=== PATIENT | male | born 1975 | race Caucasian/White ===

== ENCOUNTER 2018-04-08 17:58 | Inpatient (IN) | payer OTHER ==
[~2018-04-08] VITALS: Ht 175.3 cm; Wt 81.6 kg
[2018-04-08 00:30] VITALS: BP 152/86
[2018-04-08 19:59] LABS: ABSOLUTE BASOPHIL COUNT 0 /CUMM (0.0-0.2); ABSOLUTE EOSINOPHIL COUNT 0.2 /CUMM (0.0-0.7); ABSOLUTE GRANULOCYTE CT 16.4 /CUMM (1.4-6.5); ABSOLUTE LYMPH COUNT 2.2 /CUMM (1.2-3.4); ABSOLUTE MONOCYTE COUNT 3.1 /CUMM (0.10-0.60); BASOPHIL % 0.1 % (0.0-2.0); EOSINOPHIL % 0.8 % (0-5); GRANULOCYTE % 74.9 % (42.2-75.2); HEMATOCRIT 40.3 % (42-52); MEAN CORPUSCULAR HGB 30.4 PG (27.0-31.0); MEAN CORPUSCULAR HGB CONC 33.3 G/DL (33.0-37.0); MEAN CORPUSCULAR VOLUME 91.4 FL (80.0-94.0); MEAN PLATELET VOLUME 7.5 FL (7.4-10.4); PLATELET COUNT 421 /CUMM (130-400); RBC DISTRIBUTION WIDTH 13.3 % (11.5-14.5); RED BLOOD CELL CT 4.41 /CUMM (4.70-6.10); WHITE BLOOD CELL COUNT 21.9 /CUMM (4.8-10.8)
--- NOTE | 2018-04-08 21:02 | RADIOLOGY REPORT ---
EXAMINATION: XR HAND, RIGHT CLINICAL INFORMATION: Pain and swelling with redness to dorsum of right hand. Presumptive diagnosis of fracture. COMPARISON: None TECHNIQUE: PA, lateral, and oblique views of the right hand. FINDINGS: There is prominent dorsal soft tissue swelling seen. No definite acute fracture or dislocation is seen. No radiopaque foreign body seen in the soft tissues. No significant degenerative change is seen. IMPRESSION: Prominent dorsal soft tissue swelling. No definite acute fracture.
--- NOTE | 2018-04-08 21:09 | ED HAND/WRIST INJURY COMPLAINT ---
History of Present Illness General Chief Complaint: Hand or Wrist Injury Source: patient Exam Limitations: no limitations Vital Signs & Intake/Output Vital Signs & Intake/Output Vital Signs Date Time Temp Pulse Resp B/P B/P Pulse O2 O2 Flow FiO2 Mean Ox Delivery Rate 04/08 2148 99.2 84 18 130/74 97 Room Air Room Air 04/08 1813 99.1 88 18 131/81 97 Room Air Room Air Allergies Coded Allergies: NO KNOWN ALLERGIES (02/13/13) Triage Note: PT TO ED WITH C/O INFECTION TO RIGHT BACK OF HAND SINCE YESTERDAY S/P IVDA. RIGHT HAND SWELLING REDNESS, SMALL SCAB NOTED. TEMP 99.1 Triage Nurses Notes Reviewed? yes Duration: day(s): (3-4), constant, continues in ED, getting worse Timing: single episode today Injury Environment: home Severity: moderate, severe Severity Numbers: 9 Pain/Injury Location: Right: Wrist. Context: IVDU Method of Injury: IVDU No Modifying Factors: none Associated Symptoms: swelling, redness HPI: 43-year-old male past medical history of IV drug use on methadone maintenance, GERD, presents for evaluation of pain swelling and redness in his right hand. Patient states that symptoms started after he attempted to inject heroin into the vein in his right hand. He missed the vein and instead injected into his soft tissue. Several days later he noted that the area is becoming red and swollen and more painful. The redness has gradually been spreading and now is going up his arm. He reports subjective fever at home. 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 He also reports some numbness and tingling in his fingertips. This been no discharge. No chest pain shortness of breath. He is not a diabetic. (Daniel Linares) General Stated Complaint: PT HAS A INFECTION IN THERT HAND,SWOLLEN (Aniya RASHID,Jeffrey Lenz) Past History Travel History Traveled to [place] past 21 day No Medical History Any Pertinent Medical History? 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 No (Daniel Linares) Review of Systems Review of Systems Constitutional: Reports: fever, malaise. EENTM: Reports: no symptoms. Respiratory: Reports: no symptoms. Cardiovascular: Reports: no symptoms. GI: Reports: no symptoms. Genitourinary: Reports: no symptoms. Musculoskeletal: Reports: no symptoms. Skin: Reports: see HPI, erythema. Neurological/Psychological: Reports: no symptoms. Hematologic/Endocrine: Reports: no symptoms. Immunologic/Allergic: Reports: no symptoms. All Other Systems: Reviewed and Negative (Daniel Linares) Physical Exam Physical Exam General Appearance: well developed/nourished, no apparent distress, alert, awake Head: atraumatic, normal appearance Eyes: Bilateral: normal appearance, PERRL, EOMI. Ears, Nose, Throat: hearing grossly normal Neck: normal inspection, supple, full range of motion Cardiovascular/Respiratory: normal breath sounds, normal peripheral pulses, regular rate/rhythm, no respiratory distress, NO MURMURS Back: normal inspection, normal range of motion Shoulder Left: normal range of motion, normal inspection Shoulder Right: normal range of motion, normal inspection Elbow Left: normal range of motion, normal inspection Elbow Right: normal range of motion, normal inspection Forearm Left: normal range of motion, normal inspection Forearm Right: normal range of motion, LYMPHATIC STREAKING Wrist Left: normal range of motion, normal inspection Wrist Right: normal range of motion, LYMPHATIC STREAKING Hand Left: normal inspection, normal range of motion Hand Right: infection, limited range of motion, swelling, tender, THERE IS ERYTHEMA SWELLING AND PAIN TO PALPATION OF THE DORSUM OF THE HAND. tHE ERYTHEMA STREAKS UP INTO THE WRIST AND FOREARM. tHE DORSUM OF THE HAND IS ALSO INDURATED. tHERE IS NO FOCAL FLUCTUANT AREAS NO DISCHARGE. rANGE OF MOTION IS SIGNIFICANTLY LIMITED DUE TO PAIN. cAP REFILL LESS THAN 2 SECONDS Neurologic/Tendon: normal sensation, no pulse deficit Skin: intact, normal color, warm/dry Lymphatic: no anterior cervical royal (Daniel Linares) Progress Differential Diagnosis: abscess, cellulitis, compartment syndrome, dislocation, fracture, gout, septic arthritis, sprain, tenosynovitis Plan of Care: Orders Procedure Date/time Status Regular Diet 04/09 B Active Misc Message 04/08 2242 Active ED Holding Orders 04/08 2242 Active Admit to inpatient 04/08 2242 Active Vital Signs 04/08 2242 Active Code Status 04/[address] UPPER EXT W IV CONTRAST 04/08 2224 Active BLOOD CULTURE 04/08 1915 Active LACTIC ACID 04/08 1915 Complete COMPREHENSIVE METABOLIC PANEL 04/08 1915 Complete CBC WITHOUT DIFFERENTIAL 04/08 1915 Complete Current Medications Sig/Daniel Start time Last Medication Dose Stop Time Status Admin Ketorolac 30 MG ONCE ONE 04/08 1915 CAN Tromethamine 04/08 1916 (Toradol) Laboratory Tests 04/08/182214: Lactic Acid Cancelled 04/08/181929: Anion Gap 13, Estimated GFR > 60, BUN/Creatinine Ratio 11.3, Glucose 94, Lactic Acid 0.7, Calcium 8.9, Total Bilirubin 0.8, AST 16 L, ALT 20 L, Alkaline Phosphatase 74, Total Protein 7.6, Albumin 3.9, Globulin 3.7, Albumin/Globulin Ratio 1.1, CBC w Diff MAN DIFF ORDERED, RBC 4.41 L, MCV 91.4, MCH 30.4, MCHC 33.3, RDW 13.3, MPV 7.5, Gran % 74.9, Lymphocytes % 9.9 L, Monocytes % 14.3 H, Eosinophils % 0.8, Basophils % 0.1, Absolute Granulocytes 16.4 H, Segmented Neutrophils 73, Band Neutrophils 3, Absolute Lymphocytes 2.2, Lymphocytes 13 L, Monocytes 11 H, Absolute Monocytes 3.1 H, Absolute Eosinophils 0.2, Absolute Basophils 0, Platelet Estimate INCREASED, Normocytic RBCs VERIFIED, Normochromic RBCs VERIFIED Microbiology 04/08 1945 BLOOD: Blood Culture - RECD 04/08 1930 BLOOD: Blood Culture - RECD Patient seen and evaluated. He has an area of cellulitis on the dorsum of the right hand extending into the forearm. There is no focal fluctuant areas that there is indurated. Patient has a low-grade temp here. We'll check basic labs x-ray. Patient medicated with Toradol. Blood cultures obtained. Patient has a white count 22,000. X-rays negative for fracture or subcutaneous status air. Patient is a high risk patient given that he is an injection drug user. Unasyn ordered. Patient will require admission to the hospital for IV antibiotics plastic surgery consult. A CT scan of the right hand was ordered. Case discussed with Dr. Kwan he agrees. Diagnostic Imaging: Viewed by Me: Radiology Read. Discussed w/RAD: Radiology Read. Comments: PATIENT: FLORIN GARVEY PRESENT AGE: 43 PATIENT ACCOUNT NO: [id number] : 76 LOCATION: [facility] ORDERING PHYSICIAN: Daniel ARGUELLO SERVICE DATE: 04/08/18 EXAM TYPE: RAD - XRY-HAND, RIGHT EXAMINATION: XR HAND, RIGHT CLINICAL INFORMATION: Pain and swelling with redness to dorsum of right hand. Presumptive diagnosis of fracture. COMPARISON: None TECHNIQUE: PA, lateral, and oblique views of the right hand. FINDINGS: There is prominent dorsal soft tissue swelling seen. No definite acute fracture or dislocation is seen. No radiopaque foreign body seen in the soft tissues. No significant degenerative change is seen. IMPRESSION: Prominent dorsal soft tissue swelling. No definite acute fracture. DICTATED BY: Tonia Lundy MD DATE/TIME DICTATED:04/08/182044 ARMAMENT REPAIRER:GREER DATE/TIME TRANSCRIBED:04/08/182044 CONFIDENTIAL, DO NOT COPY WITHOUT APPROPRIATE AUTHORIZATION. <Electronically signed in Other Vendor System> SIGNED BY: Tonia Lundy MD [id number] (Daniel Linares) Departure Departure Disposition: HOME OR SELF CARE Condition: Stable Clinical Impression Primary Impression: Cellulitis and abscess of hand Referrals: Patient Has No Primary Care Dr (PCP/Family) Departure Forms: Customer Survey General Discharge Information Admission Note Spoke With: Marino Watson MD Documentation of Exam: Documentation of any treatments & extenuating circumstances including Concerns Regarding Discharge (functional status, medication knowledge or non-compliance, living conditions, etc.) that warrant an admission rather than observation: Patient is a high risk patient given he is an injection drug user. [IV fluids, IV antibiotics, serial labs, plastic surgery consult, follow-up cultures, infectious disease consult, IV pain control] (Daniel Linares) PA/WEIGHER AND CRUSHER Co-Sign Statement Statement: ED Attending supervision documentation- [X] I saw and evaluated the patient. I have also reviewed all the pertinent lab results and diagnostic results. I agree with the findings and the plan of care as documented in the PA's/WEIGHER AND CRUSHER's documentation. Patient presents for evaluation of a hand infection after attempting IV drug use. Physical examination reveals erythema and swelling with lymphadenitis of the dorsum of the right hand. [] I have reviewed the ED Record and agree with the PA's/WEIGHER AND CRUSHER's documentation. [] Additions or exceptions (if any) to the PAs/WEIGHER AND CRUSHER's note and plan are summarized below: [] (Aniya RASHID,Jeffrey Lenz)
--- NOTE | 2018-04-08 23:36 | CT SCAN REPORT ---
EXAMINATION: CT UPPER EXTREMITY WITH CONTRAST, RIGHT CLINICAL INFORMATION: Pain swelling lymphatic streaking to dorsum of right hand after IV DU COMPARISON: X-ray of the right hand earlier same day TECHNIQUE: CT scan of the right distal forearm wrist and hand was performed with contrast with 95 mL of Optiray 320 given intravenously. Additional sagittal coronal reformatted imaging obtained at the acquisition workstation DLP: 361 mGy-cm FINDINGS: There is subcutaneous fluid density noted throughout the dorsum of the wrist and hand. There may be some minimal enhancement of the subcutaneous soft tissue in this area. There is also increased fluid within the extensor tendon sheath beginning at the wrist and extending into the hand involving the second through fifth fingers. No definite Adelina synovitis of the thumb. IMPRESSION: Tenosynovitis of the extensor tendons extending to the second through fifth fingers. Edema in the dorsal subcutaneous soft tissues of the wrist and hand with perhaps some minimal enhancement consistent with cellulitis. No focal fluid collection or abscess.
--- NOTE | 2018-04-08 23:37 | History & Physical ---
Keyona Hu MD,[facility] 04/08/18 9647: General Information and HPI MD Statement: I have seen and personally examined FLORIN GARVEY and documented this H&P. The patient is a 43 year old M who presented with a patient stated chief complaint of [swelling and erythema of right hand]. Source of Information: patient History of Present Illness: Patient is 43-year-old male with PMH of IVDU, on methadone since 2012 (follows [facility] in [place]), HEP C, MRSA, GERD, anxiety, depression presented to the ED with chief complaint of swelling and redness right hand. Patient restarted to use IV heroin since 3 weeks ago after stopping for the last 3 years. He was injecting on the dorsum of the hands, and for the last couple of days on the right hand. He noticed erythema on the right hand for the last 3 days, with extreme worsening this morning when he woke up. He also had severe swelling and erythema. He reported decreased motion due to severe pain. Patient also reported URTI symptoms last week with initially fever and chills, cough and sputom, but denied any fever or chills now. No chest pain, sob, weakness, fatique. He denied drinking alcohol for the last 3 years, smokes 0.5PPD since age 14. Family history significant for heart attack in brother and breast cancer in sister. Allergies/Medications Allergies: Coded Allergies: NO KNOWN ALLERGIES (02/13/13) Home Med list Esomeprazole (Nexium) 40 MG CAPSULE.DR 1 CAP PO DAILY GERD (Reported) Methadone Hydrochloride (Methadone HCl) 10 MG TABLET 25 MG PO DAILY OPIATE WITHDRAWAL (Reported) Trazodone HCl 50 MG TABLET 1 TAB PO QPM SLEEP (Reported) Past History Travel History Traveled to [place] past 21 day No Medical History Neurological: NONE EENT: NONE Cardiovascular: NONE Respiratory: NONE Gastrointestinal: GERD Hepatic: NONE Renal: NONE Musculoskeletal: NONE Psychiatric: anxiety, depression Endocrine: NONE Blood Disorders: NONE Cancer(s): 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 Exam & Diagnostic Data Last 24 Hrs of Vital Signs/I&O Vital Signs Date Time Temp Pulse Resp B/P B/P Pulse O2 O2 Flow FiO2 Mean Ox Delivery Rate 04/09 0030 98.4 71 18 152/86 99 Room Air 04/08 2148 99.2 84 18 130/74 97 Room Air Room Air 04/08 1813 99.1 88 18 131/81 97 Room Air Room Air Intake & Output 04/09 0800 04/09 0000 04/08 1600 Intake Total 240 Output Total Balance 240 Intake, Oral 240 Patient 180 lb Weight Weight Reported by Patient Measurement Method Physical Exam General Appearance Alert, Oriented X3, Cooperative, No Acute Distress Skin Erythema, swelling and tenderness of right hand, pain with motion, 1cm papuar/pustular lesion on dorsum of hand. cap fill normal Skin Temp/Moisture Exam: Warm/Dry HEENT Atraumatic, EOMI Cardiovascular Normal S1, Normal S2 Lungs Clear to Auscultation, Normal Air Movement Abdomen Soft, No Tenderness Extremities scar of knee surgery Last 24 Hrs of Labs/Aaron: Laboratory Tests 04/08/182214: Lactic Acid Cancelled 04/08/181929: Anion Gap 13, Estimated GFR > 60, BUN/Creatinine Ratio 11.3, Glucose 94, Lactic Acid 0.7, Calcium 8.9, Total Bilirubin 0.8, AST 16 L, ALT 20 L, Alkaline Phosphatase 74, Total Protein 7.6, Albumin 3.9, Globulin 3.7, Albumin/Globulin Ratio 1.1, CBC w Diff MAN DIFF ORDERED, RBC 4.41 L, MCV 91.4, MCH 30.4, MCHC 33.3, RDW 13.3, MPV 7.5, Gran % 74.9, Lymphocytes % 9.9 L, Monocytes % 14.3 H, Eosinophils % 0.8, Basophils % 0.1, Absolute Granulocytes 16.4 H, Segmented Neutrophils 73, Band Neutrophils 3, Absolute Lymphocytes 2.2, Lymphocytes 13 L, Monocytes 11 H, Absolute Monocytes 3.1 H, Absolute Eosinophils 0.2, Absolute Basophils 0, Platelet Estimate INCREASED, Normocytic RBCs VERIFIED, Normochromic RBCs VERIFIED Microbiology 04/08 1945 BLOOD: Blood Culture - RECD 04/08 1930 BLOOD: Blood Culture - RECD Assessment/Plan Assessment: Patient is 43-year-old male presented to the ED with chief complaint of swelling and redness right hand after drug injection PMH: IVDU, on methadone since 2012 (follows [facility] in [place]), HEP C, MRSA, GERD, anxiety, depression VS, Ph Ex at admission: No fever, insignificant, FL 88 Labs at admission: WBC 21, bands 3, BEP insignificant Imagings at admission: Hand x-ray Prominent dorsal soft tissue swelling. No definite acute fracture. hand CT: Tenosynovitis of the extensor tendons extending to the second through fifth fingers. Edema in the dorsal subcutaneous soft tissues of the wrist and hand with perhaps some minimal enhancement consistent with cellulitis. No focal fluid collection or abscess. Patient was admitted to floor for management of following conditions: Cellulitis IVDA on methadone chronic medical conditions - Admit patient to general medicine floor - Check vital signs - Check progression of erythema - IV fluids - Plastic surgery called, no emergent intervention needed - evalaute for Compartment syndrom, 5P - administer IV Unasyn, vancomycin - pain control with IV tynelol, continue methadone - UTox DVT ppx: alps and pharmacologic Regular diet FC As Ranked By This Provider Problem List: 1. Cellulitis and abscess of hand Core Measures/Misc (08/18) Acute Coronary Syndrome ACS Diagnosis: No Congestive Heart Failure Congestive Heart Failure Diagnosis No Cerebrovascular Accident CVA/TIA Diagnosis: No VTE (View Protocol) VTE Risk Factors Age>40 No Mechanical VTE Prophylaxis d/t N/A MechProphylax Ordered No VTE Pharm Prophylaxis d/t NA PharmProphylax ordered Sepsis (View protocol) Sepsis Present: No Samra Campos 04/09/18 0114: Resident Review Statement Resident Statement: examined this patient, discussed with mechanical engineering intern Other Findings: Patient is a 43-year-old male with past medical history of IVDA, history of MRSA , hep C, depression/anxiety, GERD, cocaine abuse, methadone user presented to the ED with a chief complaint of pain and swelling in his right hand for the past 2-3 days. Patient states that he noticed redness and swelling in his right hand about 3 days ago. He injects heroine to both his right and left hands alternatively. He has been using his right hand for injections in spite of the redness and the swelling. A few days ago while attempting to inject insulin he injected heroin into the soft tissue. The pain and swelling started since then. Today he found his hand extremely swollen and more painful and was unable to move it. The erythema had moved from his hand up his arm. He reports no drainage from his hand. Denies any fevers, chills, chest pain, palpitation, nausea, vomiting, abdominal bowel symptoms. No vesicular pustular lesions, history of arthritis. Patient is sexually active. He had URTI about a week ago when he had some fevers and chills. Patient is a cocaine user but denies using it in the past couple of years. He is a smoker with 1/2 PPD for the last 30 years. Denies any alcohol use in the last 2 years. No previous similar cellulitis. Vitals at admission: Temp 99.1, ulcerative, respiration 18, blood pressure 131/ 81, saturating 97% on room air. Labs significant for white count of 21.9 with 3 bands, H&H 13.4/40.3, normal chemistries. X-ray hand showed soft tissue swelling with no fracture. CT hand showed no synovitis of the extensor tendon extending to the second through fifth fingers. Edema in the dorsal subcutaneous tissues of the wrist, no collection or abscesses seen. Physical exam General: Awake, alert, oriented, in moderate distress HEENT: PERRLA, EOMI, no lymphadenopathy Chest: Clear breath sounds bilaterally CVS: Tachycardia, no murmurs heard Abdomen: No tenderness Extremities: Right hand : Erythema, swelling, warmth over the dorsum of right hand. Erythema extending from the wrist to the forearm. Movement of the hand extremely painful. Pulses positive, no paresthesia. Fluctuation negative. Small area of pustule/scabbing due to puncture wound over the dorsum noted. Palmar side of the hand appears clean. No pus seen Left hand: Some erythema and redness over the left dorsum with puncture wounds on the dorsum with scabbing. Assessment Right hand cellulitis Infectious Tenosynovitis of extensor tendon second to fifth finger finger IV drug abuser On methadone Cocaine user History of hep C Smoker Plan Admit to [facility] Vitals per protocol Gentle hydration IV normal saline at 75 ccx 1 baG Tetanus toxoid injection Patient received IV Unasyn in the ED. Need to cover for gram-positive, gram- negative and anaerobes We will continue IV vancomycin and IV Unasyn. Patient also has history of MRSA Pain control with oxycodone and Tylenol Blood cultures Check U tox No abscess seen on CT scan. No signs of compartment syndrome at this time. Discussed with Arben Ribera MD. We'll continue antibiotics and plastics will evaluate the patient in a.m. Patient says he takes 25 mg of methadone from [facility] in [place]. Please confirm those in a.m. and restarted. Patient also takes trazodone 50 mg. No claim history. Please confirm with pharmacy in a.m. DVT subcutaneous Lovenox Full code Marino Watson 04/09/18 0421: Attending MD Review Statement Attending Statement Attending MD Statement: examined this patient, discuss w/resident/PA/CLEANER ASSISTANT, agreed w/resident/PA/CLEANER ASSISTANT, reviewed EMR data (avail), reviewed images, amended to note Attending Assessment/Plan: cc: Right hand infection PMH: IVDU, GERD, anxiety, depression, history of hep C S/P treatment, history of MRSA Patient started to notice swelling of right hand on the dorsal aspect since last 3 days, swelling progressively worsened. Patient has been using daily IV heroine through veins in that area. On other occasions it may have extravasated. Even with the swelling he continued the use of IVDU in same area and today he started to notice worsening redness, pain, swelling so he came to ER. He denies any fever, chills, chest pain, palpitation. He had URI symptoms with severe sore throat approximately one week back and currently having residual cough. Otherwise complete ROS unremarkable. He had MRSA infection and foot in remote past for which he was admitted at [facility]. Vitals: Temperature 99.2, pulse 88, RR 18, blood pressure 131/81, saturating 97% on room air On exam: A O 3, cooperative, no acute distress, neck supple, JVD normal, no lymphadenopathy, mucosa moist, no focal neurological deficit, no dependent edema , no obvious skin rashes or inflammation CVS: S1-S2, RRR, no murmur auscultated. RS: Clear to auscultate bilaterally. Abdomen: Soft, NT, ND, bowel sounds present. Right hand is swollen on dorsal aspect, flexion and extension at MCP is limited secondary to pain, passive motion as possible but again limited secondary to pain. Capillary refill normal, radial pulse normal, no fluctuation, no discharge. CT right hand with IV contrast: Tenosynovitis of the extensor tendons extending to the second through fifth fingers. Edema in the dorsal subcutaneous soft tissues of the wrist and hand with perhaps some minimal enhancement consistent with cellulitis. No focal fluid collection or abscess. Assessment and plan 43-year-old male with history of IV drug use presented in ER for right hand swelling, redness, pain started approximately 3 days back and became worse today. Even with the swelling he was shooting drugs in the same vein. On examination Right hand is swollen on dorsal aspect, flexion and extension at MCP is limited secondary to pain, passive motion as possible but again limited secondary to pain. Capillary refill normal, radial pulse normal, no fluctuation, no discharge. Labs show significant leukocytosis, lactate of 0.[address] scan of the hand was obtained which is worrisome for tenosynovitis, I personally spoke to Dr. Sanders and provided all the details. He suggested to continue antibiotics and he will see patient tomorrow. Given his history of MRSA he will continue vancomycin along with Unasyn. No known drug allergies + Right hand infection with tenosynovitis + History of IV drug use + Opiate dependence - Admit to general medicine - Continue gentle hydration normal saline at 75 mL for 1 L - Continue IV Unasyn and vancomycin - Plastic surgery consult - Blood culture 2 - Obtain U tox - Obtain a set of troponin and ECG (use of cocaine) - Continue all home medications, confirm the dose of methadone before restarting - Adequate pain control
[2018-04-09] MEDS ORDERED: NEXIUM40 M1 PO (00:08)
[2018-04-09] MEDS ORDERED: METHADONE HCL10 M1 PO (00:08)
[2018-04-09] MEDS ORDERED: TRAZODONE HCL50 M1 PO (00:09)
--- NOTE | 2018-04-09 04:23 | Admission Certification ---
Admission Certification Certification Statement - As attending physician, I certify that at the time of - admission, based on clinical presentation, severity of - symptoms, need for further diagnostic testing and - therapeutic interventions, and risk of adverse outcomes - without in-hospital treatment, in my clinical assessment, - this patient requires an acute hospital stay for a minimum - of two nights or longer. I have also considered psychsocial - factors such as support system, advanced age, financial - issues, cognitive issues, and failed out-patient treatments, - past re-admission history, safety of patient, and lack of - compliance as applicable. Specific rationale supporting this admission is: Right hand infection with tenosynovitis
--- NOTE | 2018-04-09 05:04 | PN- Housestaff ---
Carolyn RASHID,Diane 04/09/18 0503: Subjective Follow-up For: Tenosynovitis/celluliti right hand Complaints: complaints of pain and right hand Subjective: Patient seen and examined at bedside. No overnight events. Complaints of 7 x 10 pain in his right hand. He is unable to make a fist. Denies fever, chills, nausea, vomiting, chest pain. Review of Systems Constitutional: Reports: no symptoms. Cardiovascular: Reports: no symptoms. Respiratory: Reports: no symptoms. Gastrointestinal: Reports: no symptoms. Genitourinary: Reports: no symptoms. Objective Last 24 Hrs of Vital Signs/I&O Vital Signs Date Time Temp Pulse Resp B/P B/P Pulse O2 O2 Flow FiO2 Mean Ox Delivery Rate 04/09 0531 99.2 80 18 129/73 97 Room Air 04/09 0030 98.4 71 18 152/86 99 Room Air 04/08 2148 99.2 84 18 130/74 97 Room Air Room Air 04/08 1813 99.1 88 18 131/81 97 Room Air Room Air Intake & Output 04/09 1600 04/09 0800 04/09 0000 Intake Total 50 250 240 Output Total Balance 50 250 240 Intake, IV 250 Intake, Oral 50 240 Patient 180 lb 180 lb Weight Weight Reported by Patient Reported by Patient Measurement Method Physical Exam General Appearance: Alert, Oriented X3, Cooperative, No Acute Distress Cardiovascular: Normal S1, Normal S2, No Murmurs Lungs: Clear to Auscultation Abdomen: Soft, No Tenderness, No Hepatospenomegaly Neurological: Normal Speech, Strength at 5/5 X4 Ext, Normal Tone, Sensation Intact Extremities: rt hand- swelling,redness. unable to amke fist.lrft had 3*4 cm redness with no tenderness reva . both hand has iv track mcconnell Current Medications: Current Medications Sig/Daniel Start time Last Medication Dose Route Stop Time Status Admin Acetaminophen 0 .STK-MED ONE 04/09 543 DC IV Acetaminophen 1,000 MG Q6P PRN 04/09 0130 AC 04/09 N/A 1 UNIT IV 0552 Acetaminophen 325 MG Q6 PRN 04/08 2345 AC PO Ampicillin Sodium/ 1,500 MG Q6 04/09 0600 AC 04/09 Sulbactam Sodium IV 0606 Sodium Chloride 100 ML Ampicillin Sodium/ 0 .STK-MED ONE 05/09 0543 DC Sulbactam Sodium .ROUTE Ampicillin Sodium/ 0 .STK-MED ONE 04/08 2145 DC Sulbactam Sodium .ROUTE Ampicillin Sodium/ 3,000 MG ONCE ONE 04/08 2100 DC 04/08 Sulbactam Sodium IV 04/08 Sodium Chloride 100 ML Enoxaparin Sodium 40 MG DAILY 04/09 900 CAN SC Enoxaparin Sodium 40 MG DAILY 04/09 900 AC SC Ketorolac 30 MG ONCE ONE 04/08 1945 DC 04/08 Tromethamine IM 04/08 Ketorolac 0 .STK-MED ONE 04/08 1926 DC Tromethamine .ROUTE Ketorolac 30 MG ONCE ONE 04/08 1915 CAN Tromethamine IV 04/08 1916 Naproxen 500 MG BID 04/09 0939 AC PO Omeprazole 40 MG DAILY AC 04/09 0700 AC 04/09 PO 0603 Omeprazole 0 .STK-MED ONE 04/09 0608 DC PO Oxycodone HCl 10 MG Q6P PRN 04/09 0938 AC PO Oxycodone HCl 5 MG Q6 PRN 04/09 0130 DC 04/09 PO 0812 Sodium Chloride 1,000 ML Q13H 04/09 0130 AC 04/09 IV 04/09 1429 0210 Tetanus/Diphtheria 0.5 ML ONCE ONE 04/09 0100 DC Toxoids Adsorbed IM 04/09 0101 Vancomycin HCl 1,000 MG DAILY 04/09 900 DC Sodium Chloride 250 ML IV Vancomycin HCl 1,000 MG DAILY 04/09 0130 AC 04/09 Sodium Chloride 250 ML IV 0210 Last 24 Hrs of Lab/Aaron Results Last 24 Hrs of Labs/Mics: Laboratory Tests 04/09/18 0635: Urine Opiates Screen > 4000.00 H, Methadone Screen > 735 H, Barbiturate Screen < 60, Ur Phencyclidine Scrn < 6.00, Amphetamines Screen < 100, U Benzodiazepines Scrn < 85, Urine Cocaine Screen 253, Urine Cannabis Screen < 5.00, Urine Color YEL, Urine Clarity CLEAR, Urine pH 7.5, Ur Specific [place] 1.010, Urine Protein TRACE H, Urine Ketones NEG, Urine Nitrite NEG, Urine Bilirubin NEG, Urine Urobilinogen 1.0, Ur Leukocyte Esterase NEG, Ur Microscopic SEDIMENT EXAMINED, Urine RBC 3-5, Urine WBC 1-3 H, Urine Bacteria RARE H, Urine Hemoglobin TRACE- INTACT H, Urine Glucose NEG 04/09/18 0605: Anion Gap 9, Estimated GFR > 60, BUN/Creatinine Ratio 13.3, Troponin I < 0.01 04/09/18 0600: CBC w Diff MAN DIFF ORDERED, RBC 4.11 L, MCV 91.1, MCH 30.4, MCHC 33.3, RDW 13.6, MPV 7.4, Gran % 78.2 H, Lymphocytes % 9.5 L, Monocytes % 11.6 H, Eosinophils % 0.5, Basophils % 0.2, Absolute Granulocytes 19.5 H, Segmented Neutrophils 67, Band Neutrophils 3, Absolute Lymphocytes 2.4, Lymphocytes 13 L, Monocytes 15 H, Absolute Monocytes 2.9 H, Absolute Eosinophils 0.1, Absolute Basophils 0, Metamyelocytes 2 H, Platelet Estimate ADEQUATE, Polychromasia 1+, Ovalocytes FEW, Fld Total RBCs Counted 100 04/08/182214: Lactic Acid Cancelled 04/08/181929: Anion Gap 13, Estimated GFR > 60, BUN/Creatinine Ratio 11.3, Glucose 94, Lactic Acid 0.7, Calcium 8.9, Total Bilirubin 0.8, AST 16 L, ALT 20 L, Alkaline Phosphatase 74, Total Protein 7.6, Albumin 3.9, Globulin 3.7, Albumin/Globulin Ratio 1.1, CBC w Diff MAN DIFF ORDERED, RBC 4.41 L, MCV 91.4, MCH 30.4, MCHC 33.3, RDW 13.3, MPV 7.5, Gran % 74.9, Lymphocytes % 9.9 L, Monocytes % 14.3 H, Eosinophils % 0.8, Basophils % 0.1, Absolute Granulocytes 16.4 H, Segmented Neutrophils 73, Band Neutrophils 3, Absolute Lymphocytes 2.2, Lymphocytes 13 L, Monocytes 11 H, Absolute Monocytes 3.1 H, Absolute Eosinophils 0.2, Absolute Basophils 0, Platelet Estimate INCREASED, Normocytic RBCs VERIFIED, Normochromic RBCs VERIFIED Microbiology 04/08 1945 BLOOD: Blood Culture - RECD 04/08 1930 BLOOD: Blood Culture - RECD Assessment/Plan Assessment: 43-year-old gentleman with past medical history of hepatitis C, IV drug abuse on methadone [IV heroine use], MRSA infection in the past, GERD, anxiety, depression came to the hospital with complaints of pain and swelling right hand. Labs today WBC 21.9--- 25 with 78.2 granulocytes and 3 band neutrophils, hemoglobin 12.5, sodium 135, potassium 3.8. Assessment and plan 1. Cellulitis right hand and TENOsynovitis of right second to fifth finger - cellulitis of his right hand and the synovitis secondary due to IV drug abuse. Patient is on vancomycin covering MRSA, Unasyn covering gram-positive, negative and anaerobes. At this moment there is no suspicion for pseudomonas infection. We will continue current antibiotics. If the patient condition doesn't improve we will involve ID on board. 2. Anxiety/depression-patient has baseline anxiety and depression. He complains of increased sweating and anxiety secondary to heroine withdrawal. Patient is to take 10-12 packs of heroine daily. He goes to methadone clinic at [place], though he doesn't take his methadone regularly. Last methadone 25 mg was taken to days ago. We will confirm with the methadone clinic regarding his complaints. Meanwhile we will get psychiatry on board to help the patient tried withdrawal. Code-full code Diet-regular diet DVT prophylaxis Problem List: 1. Tenosynovitis 2. Cellulitis Pain Ratin Pain Location: RT HAND Pain Goal: Remain pain free Pain Plan: ROXICODENE Tomorrow's Labs & Rationales: CLAUDIA Rodríguez MD,Claudia 04/09/18 1123: Attending MD Review Statement Attending Statement Attending MD Statement: examined this patient, discuss w/resident/PA/RETAIL CLERK, agreed w/resident/PA/RETAIL CLERK, reviewed EMR data (avail), discussed with nursing, discussed with case mgmt, reviewed images, amended to note Attending Assessment/Plan: Patient seen and examined, not feeling better. Still complaining of excruciating pain in his right hand. Patient is admitted with right hand cellulitis after IV drug abuse. He is also on chronic methadone. Vital Signs Date Time Temp Pulse Resp B/P B/P Pulse O2 O2 Flow FiO2 Mean Ox Delivery Rate 04/09 0531 99.2 80 18 129/73 97 Room Air 04/09 0030 98.4 71 18 152/86 99 Room Air 04/08 2148 99.2 84 18 130/74 97 Room Air Room Air 04/08 1813 99.1 88 18 131/81 97 Room Air Room Air on exam; aox3, nad. cv; s1,s2 rrr resp; clear abd; soft, nt, bs+ ext; no edema skin; + erythema swelling on right hand. limited rom. Laboratory Tests 04/09 04/09 0635 0605 Chemistry Sodium (137 - 145 mmol/L) 135 L Potassium (3.5 - 5.1 mmol/L) 3.8 Chloride (98 - 107 mmol/L) 98 Carbon Dioxide (22 - 30 mmol/L) 28 Anion Gap (5 - 16) 9 BUN (9 - 20 mg/dL) 8 L Creatinine (0.7 - 1.2 mg/dL) 0.6 L Estimated GFR (>60 ml/min) > 60 BUN/Creatinine Ratio (7 - 25 %) 13.3 Troponin I (<0.11 ng/ml) < 0.01 Toxicology Urine Opiates Screen (>2000 NG/ML) > 4000.00 H Methadone Screen (>300 NG/ML) > 735 H Barbiturate Screen (>200 NG/ML) < 60 Ur Phencyclidine Scrn (>25 NG/ML) < 6.00 Amphetamines Screen (>1000 NG/ML) < 100 U Benzodiazepines Scrn (>200 NG/ML) < 85 Urine Cocaine Screen (>300 NG/ML) 253 Urine Cannabis Screen (>50 NG/ML) < 5.00 Urines Urine Color (YEL,AMB,STR) YEL Urine Clarity (CLEAR) CLEAR Urine pH (5.0 - 8.0) 7.5 Ur Specific [place] (1.001 - 1.035) 1.010 Urine Protein (NEG,<30 MG/DL) TRACE H Urine Ketones (NEG) NEG Urine Nitrite (NEG) NEG Urine Bilirubin (NEG) NEG Urine Urobilinogen (0.1 - 1.0 EU/dl) 1.0 Ur Leukocyte Esterase (NEG) NEG Ur Microscopic SEDIMENT EXAMINED Urine RBC (0 - 5 /HPF) 3-5 Urine WBC (0 - 2 /HPF) 1-3 H Urine Bacteria (NEG/NONE) RARE H Urine Hemoglobin (NEG) TRACE-INTACT H Urine Glucose (N MG/DL) NEG 04/09 04/08 0600 2215 Chemistry Lactic Acid Cancelled Hematology CBC w Diff MAN DIFF ORDERED WBC (4.8 - 10.8 /CUMM) 25.0 H RBC (4.70 - 6.10 /CUMM) 4.11 L Hgb (14.0 - 18.0 G/DL) 12.5 L Hct (42 - 52 %) 37.4 L MCV (80.0 - 94.0 FL) 91.1 MCH (27.0 - 31.0 PG) 30.4 MCHC (33.0 - 37.0 G/DL) 33.3 RDW (11.5 - 14.5 %) 13.6 Plt Count (130 - 400 /CUMM) 397 MPV (7.4 - 10.4 FL) 7.4 Gran % (42.2 - 75.2 %) 78.2 H Lymphocytes % (20.5 - 51.1 %) 9.5 L Monocytes % (1.7 - 9.3 %) 11.6 H Eosinophils % (0 - 5 %) 0.5 Basophils % (0.0 - 2.0 %) 0.2 Absolute Granulocytes (1.4 - 6.5 /CUMM) 19.5 H Segmented Neutrophils (42.2 - 75.2 %) 67 Band Neutrophils (0.0 - 5.0 %) 3 Absolute Lymphocytes (1.2 - 3.4 /CUMM) 2.4 Lymphocytes (20.5 - 51.1 %) 13 L Monocytes (1.7 - 9.3 %) 15 H Absolute Monocytes (0.10 - 0.60 /CUMM) 2.9 H Absolute Eosinophils (0.0 - 0.7 /CUMM) 0.1 Absolute Basophils (0.0 - 0.2 /CUMM) 0 Metamyelocytes (0.0 - 1.0 %) 2 H Platelet Estimate (ADEQUATE) ADEQUATE Polychromasia 1+ Ovalocytes FEW Other Body Source Fld Total RBCs Counted (%) 100 04/08 1930 Chemistry Sodium (137 - 145 mmol/L) 137 Potassium (3.5 - 5.1 mmol/L) 3.7 Chloride (98 - 107 mmol/L) 97 L Carbon Dioxide (22 - 30 mmol/L) 27 Anion Gap (5 - 16) 13 BUN (9 - 20 mg/dL) 9 Creatinine (0.7 - 1.2 mg/dL) 0.8 Estimated GFR (>60 ml/min) > 60 BUN/Creatinine Ratio (7 - 25 %) 11.3 Glucose (65 - 99 mg/dL) 94 Lactic Acid (0.7 - 2.1 mmol/L) 0.7 Calcium (8.4 - 10.2 mg/dL) 8.9 Total Bilirubin (0.2 - 1.3 mg/dL) 0.8 AST (17 - 59 U/L) 16 L ALT (21 - 72 U/L) 20 L Alkaline Phosphatase (< 127 U/L) 74 Total Protein (6.3 - 8.2 g/dL) 7.6 Albumin (3.5 - 5.0 g/dL) 3.9 Globulin (1.9 - 4.2 gm/dL) 3.7 Albumin/Globulin Ratio (1.1 - 2.2 %) 1.1 Hematology CBC w Diff MAN DIFF ORDERED WBC (4.8 - 10.8 /CUMM) 21.9 H RBC (4.70 - 6.10 /CUMM) 4.41 L Hgb (14.0 - 18.0 G/DL) 13.4 L Hct (42 - 52 %) 40.3 L MCV (80.0 - 94.0 FL) 91.4 MCH (27.0 - 31.0 PG) 30.4 MCHC (33.0 - 37.0 G/DL) 33.3 RDW (11.5 - 14.5 %) 13.3 Plt Count (130 - 400 /CUMM) 421 H MPV (7.4 - 10.4 FL) 7.5 Gran % (42.2 - 75.2 %) 74.9 Lymphocytes % (20.5 - 51.1 %) 9.9 L Monocytes % (1.7 - 9.3 %) 14.3 H Eosinophils % (0 - 5 %) 0.8 Basophils % (0.0 - 2.0 %) 0.1 Absolute Granulocytes (1.4 - 6.5 /CUMM) 16.4 H Segmented Neutrophils (42.2 - 75.2 %) 73 Band Neutrophils (0.0 - 5.0 %) 3 Absolute Lymphocytes (1.2 - 3.4 /CUMM) 2.2 Lymphocytes (20.5 - 51.1 %) 13 L Monocytes (1.7 - 9.3 %) 11 H Absolute Monocytes (0.10 - 0.60 /CUMM) 3.1 H Absolute Eosinophils (0.0 - 0.7 /CUMM) 0.2 Absolute Basophils (0.0 - 0.2 /CUMM) 0 Platelet Estimate (ADEQUATE) INCREASED Normocytic RBCs VERIFIED Normochromic RBCs VERIFIED A/P: 43 y/o M with pmh sig for IVDU, on methadone since 2012 (follows [facility] in [place]), HEP C, GERD, MRSA, anxiety, depression, admitted with Right hand cellulitis after IV drug use. Pt used Heroin. He follows up with [facility] for methadone but he is non complaint. Patient currently with vancomycin and Unasyn. We'll follow-up on the blood culture. A plastic surgery consult will be obtained. Pain management is not adequate. The dose of his oxycodone to 10 mg and will restart the patient on his methadone. Agree with adding NSAIDS for pain mx and induration. Hand elevation is recommended. DVT px; lovenox.
[2018-04-09 06:10] LABS: ABSOLUTE BASOPHIL COUNT 0 /CUMM (0.0-0.2); ABSOLUTE EOSINOPHIL COUNT 0.1 /CUMM (0.0-0.7); ABSOLUTE GRANULOCYTE CT 19.5 /CUMM (1.4-6.5); ABSOLUTE LYMPH COUNT 2.4 /CUMM (1.2-3.4); ABSOLUTE MONOCYTE COUNT 2.9 /CUMM (0.10-0.60); BASOPHIL % 0.2 % (0.0-2.0); EOSINOPHIL % 0.5 % (0-5); GRANULOCYTE % 78.2 % (42.2-75.2); HEMATOCRIT 37.4 % (42-52); MEAN CORPUSCULAR HGB 30.4 PG (27.0-31.0); MEAN CORPUSCULAR HGB CONC 33.3 G/DL (33.0-37.0); MEAN CORPUSCULAR VOLUME 91.1 FL (80.0-94.0); MEAN PLATELET VOLUME 7.4 FL (7.4-10.4); PLATELET COUNT 397 /CUMM (130-400); RBC DISTRIBUTION WIDTH 13.6 % (11.5-14.5); RED BLOOD CELL CT 4.11 /CUMM (4.70-6.10)
--- NOTE | 2018-04-09 12:28 | Cons- Plastic Surgery ---
General Information and HPI Consulting Request Date of Consult: 04/09/18 Requested By: Claudia Rodríguez MD Reason for Consult: Cellulitis right hand Source of Information: patient Exam Limitations: no limitations History of Present Illness: She is not to be drug abuser injecting the dorsum of the right hand and noted subsequent pain redness loss of pain-free active flexion. Came to emergency room for evaluation found to have elevated white count cellulitis of the dorsum of the right hand CAT scan with soft tissue involvement no collections. Allergies/Medications Allergies: Coded Allergies: NO KNOWN ALLERGIES (02/13/13) Home Med List: Esomeprazole (Nexium) 40 MG CAPSULE.DR 1 CAP PO DAILY GERD (Reported) Methadone Hydrochloride (Methadone HCl) 10 MG TABLET 25 MG PO DAILY OPIATE WITHDRAWAL (Reported) Trazodone HCl 50 MG TABLET 1 TAB PO QPM SLEEP (Reported) Past History Medical History Blood Transfusion Hx: No Neurological: NONE EENT: NONE Cardiovascular: NONE Respiratory: NONE Gastrointestinal: GERD Hepatic: NONE Renal: NONE Musculoskeletal: NONE Psychiatric: anxiety, depression Endocrine: NONE Blood Disorders: NONE Cancer(s): NONE 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 Home Services at Home: None Smoking Status: Current Everyday Smoker ETOH Use: alcoholic, CLEAN X 3 YEARS Illicit Drug Use: heroin Review of Systems Review of Systems: All other systems negative. The patient states his pain and discomfort with attempts at active flexion have improved since admission. Exam & Diagnostic Data Vital Signs and I&O Vital Signs Date Time Temp Pulse Resp B/P B/P Pulse O2 O2 Flow FiO2 Mean Ox Delivery Rate 04/09 0531 99.2 80 18 129/73 97 Room Air 04/09 0030 98.4 71 18 152/86 99 Room Air 04/08 2148 99.2 84 18 130/74 97 Room Air Room Air 04/08 1813 99.1 88 18 131/81 97 Room Air Room Air Intake & Output 04/09 1600 04/09 0000 04/08 0000 Intake Total 50 250 240 Output Total Balance 50 250 240 Intake, IV 250 Intake, Oral 50 240 Patient 180 lb 180 lb Weight Weight Reported by Patient Reported by Patient Measurement Method Physical Exam: Right hand shows dorsal swelling with overlying erythema extending to the PIPs to the distal forearm. Flexor surface preserved. Has pain-free passive extension of the digits has some discomfort with attempts at active flexion there is no fluctuance. Assessment/Plan Assessment/Plan Cellulitis right hand symptomatically improving on antibiotics. We'll reevaluate again in a.m. continue antibiotics and elevation Consult Acknowledgment - Thank you for your consult request.
[2018-04-09 14:50] VITALS: BP 120/76
[2018-04-09 22:55] VITALS: BP 126/82
[2018-04-10 06:55] VITALS: BP 130/84
--- NOTE | 2018-04-10 08:18 | PN- Housestaff ---
Subjective Follow-up For: Tenosynovitis/cellulitis right hand Subjective: Patient seen and examined at bedside. No overnight events. Says his pain has decreased compared to yesterday. Denies fever, chills. Able to make half fist. Review of Systems Constitutional: Reports: no symptoms, see HPI. Objective Last 24 Hrs of Vital Signs/I&O Vital Signs Date Time Temp Pulse Resp B/P B/P Pulse O2 O2 Flow FiO2 Mean Ox Delivery Rate 04/10 0655 98.4 54 16 130/84 97 Room Air 04/09 2255 98.2 74 16 126/82 95 Room Air 04/09 1450 98.9 76 20 120/76 97 Room Air Intake & Output 04/10 1600 04/10 0800 04/10 0000 Intake Total 600 500 Output Total Balance 600 500 Intake, IV 300 300 Intake, Oral 300 200 Physical Exam General Appearance: Alert, Oriented X3, Cooperative, No Acute Distress Cardiovascular: Regular Rate, Normal S1, Normal S2, No Murmurs Lungs: Clear to Auscultation Abdomen: Soft, No Tenderness, No Hepatospenomegaly Neurological: Normal Speech, Strength at 5/5 X4 Ext, Normal Tone, Sensation Intact Extremities: [id number], swelling seen mild tenderness plus. Pulses felt. Able to make half fist, left hand-redness reduced compared to yesterday. Current Medications: Current Medications Sig/Daniel Start time Last Medication Dose Route Stop Time Status Admin Acetaminophen 1,000 MG Q6P PRN 04/09 0130 AC 04/09 N/A 1 UNIT IV 0552 Acetaminophen 325 MG Q6 PRN 04/08 2345 AC PO Ampicillin Sodium/ 1,500 MG Q6 04/09 06 AC 04/10 Sulbactam Sodium IV 1130 Sodium Chloride 100 ML Enoxaparin Sodium 40 MG DAILY 04/09 0900 AC 04/09 SC 1113 Hydroxyzine HCl 50 MG Q6P PRN 04/09 1345 AC 04/10 PO 0814 Methadone HCl 25 MG DAILY 04/09 1330 AC 04/10 PO 0814 Methadone HCl 5 MG .STK-MED ONE 04/09 1330 DC PO 04/09 1331 Naproxen 500 MG BID 04/09 0939 AC 04/10 PO 0814 Omeprazole 40 MG DAILY AC 04/09 0700 AC 04/10 PO 0531 Oxycodone HCl 10 MG Q6P PRN 04/09 0938 AC 04/10 PO 1130 Sodium Chloride 1,000 ML Q13H 04/09 0130 DC 04/09 IV 04/09 1429 0210 Trazodone HCl 50 MG QPM 04/09 2100 AC 04/09 PO 2122 Vancomycin HCl 1,000 MG Q24H 04/10 0200 DC 04/10 Sodium Chloride 250 ML IV 0103 Last 24 Hrs of Lab/Aaron Results Last 24 Hrs of Labs/Mics: Laboratory Tests 04/10/18 0745: CBC w Diff NO MAN DIFF REQ, RBC 3.70 L, MCV 92.0, MCH 30.9, MCHC 33.5, RDW 13.4 , MPV 7.6, Gran % 77.1 H, Lymphocytes % 12.4 L, Monocytes % 8.6, Eosinophils % 1.5, Basophils % 0.4, Absolute Granulocytes 15.6 H, Absolute Lymphocytes 2.5, Absolute Monocytes 1.7 H, Absolute Eosinophils 0.3, Absolute Basophils 0.1 Assessment/Plan Assessment: 43-year-old gentleman with past medical history of hepatitis C, IV drug abuse on methadone [IV heroine use], MRSA infection in the past, GERD, anxiety, depression came to the hospital with complaints of pain and swelling right hand. Labs today WBC 21.9--- 25 with 78.2 granulocytes and 3 band neutrophils, hemoglobin 12.5, sodium 135, potassium 3.8. Assessment and plan 1. Cellulitis right hand and TENOsynovitis of right second to fifth finger - cellulitis of his right hand and the synovitis secondary due to IV drug abuse. Patient is on vancomycin covering MRSA, Unasyn covering gram-positive, negative and anaerobes. At this moment there is no suspicion for pseudomonas infection. We will continue current antibiotics. Patient was seen by a plastic surgeon who suggested to continue the current management. If the patient condition doesn't improve we will involve ID on board. Blood culture negative so far. 2. Anxiety/depression-patient has baseline anxiety and depression. He complains of increased sweating and anxiety secondary to heroine withdrawal. Patient is to take 10-12 packs of heroine daily. He goes to methadone clinic at [place], though he doesn't take his methadone regularly. Last methadone 25 mg was taken to days ago. We will confirm with the methadone clinic regarding his complaints. Meanwhile we will get psychiatry on board to help the patient tried withdrawal. Code-full code Diet-regular diet DVT prophylaxis Problem List: 1. Tenosynovitis 2. Cellulitis Pain Ratin Pain Location: rt hand Pain Goal: Remain pain free Pain Plan: Oxycodone Tomorrow's Labs & Rationales: cbc,bep
[2018-04-10 08:22] LABS: ABSOLUTE BASOPHIL COUNT 0.1 /CUMM (0.0-0.2); ABSOLUTE EOSINOPHIL COUNT 0.3 /CUMM (0.0-0.7); ABSOLUTE GRANULOCYTE CT 15.6 /CUMM (1.4-6.5); ABSOLUTE LYMPH COUNT 2.5 /CUMM (1.2-3.4); ABSOLUTE MONOCYTE COUNT 1.7 /CUMM (0.10-0.60); BASOPHIL % 0.4 % (0.0-2.0); EOSINOPHIL % 1.5 % (0-5); GRANULOCYTE % 77.1 % (42.2-75.2); HEMATOCRIT 34.1 % (42-52); MEAN CORPUSCULAR HGB 30.9 PG (27.0-31.0); MEAN CORPUSCULAR HGB CONC 33.5 G/DL (33.0-37.0); MEAN PLATELET VOLUME 7.6 FL (7.4-10.4); PLATELET COUNT 334 /CUMM (130-400); RBC DISTRIBUTION WIDTH 13.4 % (11.5-14.5); WHITE BLOOD CELL COUNT 20.2 /CUMM (4.8-10.8)
--- NOTE | 2018-04-10 11:22 | PN- Att Addend ---
Attending Addendum Attending Brief Note Patient seen and examined, says that he's feeling slightly better. The right hand swelling is slightly improved and patient not able to bend his fingers somewhat. Vital Signs Date Time Temp Pulse Resp B/P B/P Pulse O2 O2 Flow FiO2 Mean Ox Delivery Rate 04/10 0655 98.4 54 16 130/84 97 Room Air 04/09 2255 98.2 74 16 126/82 95 Room Air 04/09 1450 98.9 76 20 120/76 97 Room Air on exam; aox3, nad. cv; s1,s2 rrr resp; clear abd; soft, nt, bs+ ext; no edema skin; + erythema swelling on right hand slightly better with slightly improved range of motion at the fingers. Laboratory Tests 04/10 0745 Hematology CBC w Diff NO MAN DIFF REQ WBC (4.8 - 10.8 /CUMM) 20.2 H RBC (4.70 - 6.10 /CUMM) 3.70 L Hgb (14.0 - 18.0 G/DL) 11.4 L Hct (42 - 52 %) 34.1 L MCV (80.0 - 94.0 FL) 92.0 MCH (27.0 - 31.0 PG) 30.9 MCHC (33.0 - 37.0 G/DL) 33.5 RDW (11.5 - 14.5 %) 13.4 Plt Count (130 - 400 /CUMM) 334 MPV (7.4 - 10.4 FL) 7.6 Gran % (42.2 - 75.2 %) 77.1 H Lymphocytes % (20.5 - 51.1 %) 12.4 L Monocytes % (1.7 - 9.3 %) 8.6 Eosinophils % (0 - 5 %) 1.5 Basophils % (0.0 - 2.0 %) 0.4 Absolute Granulocytes (1.4 - 6.5 /CUMM) 15.6 H Absolute Lymphocytes (1.2 - 3.4 /CUMM) 2.5 Absolute Monocytes (0.10 - 0.60 /CUMM) 1.7 H Absolute Eosinophils (0.0 - 0.7 /CUMM) 0.3 Absolute Basophils (0.0 - 0.2 /CUMM) 0.1 A/P: 43 y/o M with pmh sig for IVDU, on methadone since 2012 (follows [facility] in [place]), HEP C, GERD, MRSA, anxiety, depression, admitted with Right hand cellulitis after IV drug use. Pt used IV Heroin. Patient provides remote history of MRSA about 5 years ago. We'll follow-up on the blood cultures and if they remain negative for MRSA then will stop the vancomycin in the next 4 hours. We'll continue Unasyn for now. Appreciate plastic surgery input. Keep the hand elevated in the specialized pillow. Patient has been started on methadone and further pain management is done with Tylenol, and states and Roxicodone. Pain management is adequate. DVT px; Lovenox.
[2018-04-10 14:47] VITALS: BP 120/70
--- NOTE | 2018-04-10 15:03 | PN- Plastic Surgery ---
Subjective Subjective: pt states active motion is less painful. Review of Systems: all other systems neg. Objective Vital Signs and I&Os Vital Signs Date Time Temp Pulse Resp B/P B/P Pulse O2 O2 Flow FiO2 Mean Ox Delivery Rate 04/10 1447 98.3 63 20 120/70 95 04/10 0655 98.4 54 16 130/84 97 Room Air 04/09 2255 98.2 74 16 126/82 95 Room Air Intake & Output 04/10 1600 04/10 0800 04/10 0000 04/09 1600 04/09 0000 Intake Total 750 600 500 950 250 240 Output Total Balance 750 600 500 950 250 240 Intake, IV 300 300 600 250 Intake, Oral 750 300 200 350 240 Patient 180 lb 180 lb Weight Weight Reported by Patient Reported by Patient Measurement Method Physical Exam: erythema without improvement and not receeding from inked margin, ?increasing. ROM slightly improved, Assessment/Plan Assessment/Plan role of qd vanco? considider increase unasyn to 3g or consider ID consult? cont same, no indication for surgery. Problem List: 1. Cellulitis
[2018-04-10 23:27] VITALS: BP 120/80
[2018-04-11 06:20] VITALS: BP 150/86
--- NOTE | 2018-04-11 08:41 | PN- Housestaff ---
Carolyn RASHID,Diane 04/11/18 0841: Subjective Follow-up For: Tenosynovitis/cellulitis right hand Subjective: Patient seen and examined at bedside. No overnight events. Patient says his swelling,redness and pain has decreased. Review of Systems Constitutional: Reports: no symptoms, see HPI. Objective Last 24 Hrs of Vital Signs/I&O Vital Signs Date Time Temp Pulse Resp B/P B/P Pulse O2 O2 Flow FiO2 Mean Ox Delivery Rate 04/11 620 98.2 64 18 150/86 97 Room Air 04/10 232 97.7 52 20 120/80 96 Room Air 04/10 2324 60 04/10 1447 98.3 63 20 120/70 95 Intake & Output 04/11 1600 04/11 0800 04/11 0000 Intake Total 320 120 Output Total Balance 320 120 Intake, IV 200 Intake, Oral 120 120 Patient 180 lb Weight Physical Exam General Appearance: Alert, Oriented X3, Cooperative, No Acute Distress Cardiovascular: Regular Rate, Normal S1, Normal S2, No Murmurs Lungs: Clear to Auscultation Abdomen: Normal Bowel Sounds, Soft, No Tenderness, No Hepatospenomegaly Extremities: [id number] and swelling up to the level of the wrist. Decreased compared to yesterday. Able to extend his fingers. Flexion limited. Current Medications: Current Medications Sig/Daniel Start time Last Medication Dose Route Stop Time Status Admin Acetaminophen 1,000 MG Q6P PRN 04/09 0130 AC 04/09 N/A 1 UNIT IV 0552 Acetaminophen 325 MG Q6 PRN 04/08 2345 AC PO Ampicillin Sodium/ 3,000 MG Q6 04/11 1200 AC Sulbactam Sodium IV Sodium Chloride 100 ML Ampicillin Sodium/ 1,500 MG Q6 04/09 0600 DC 04/11 Sulbactam Sodium IV 0621 Sodium Chloride 100 ML Enoxaparin Sodium 40 MG DAILY 04/09 900 AC 04/09 SC 1113 Hydroxyzine HCl 50 MG Q6P PRN 04/09 1345 AC 04/11 PO 0929 Methadone HCl 25 MG DAILY 04/09 1330 AC 04/11 PO 0935 Naproxen 500 MG BID 04/09 0939 AC 04/11 PO 0937 Omeprazole 40 MG DAILY AC 04/09 0700 AC 04/11 PO 0621 Oxycodone HCl 10 MG Q6P PRN 04/09 0938 AC 04/11 PO 0626 Trazodone HCl 50 MG QPM 04/09 2100 AC 04/10 PO 2123 Vancomycin HCl 1,000 MG Q24H 04/10 0200 DC 04/10 Sodium Chloride 250 ML IV 0103 Last 24 Hrs of Lab/Aaron Results Last 24 Hrs of Labs/Mics: Laboratory Tests 04/11/18 0745: Anion Gap 9, Estimated GFR > 60, BUN/Creatinine Ratio 15.7, CBC w Diff MAN DIFF ORDERED, RBC 4.07 L, MCV 92.3, MCH 30.2, MCHC 32.8 L, RDW 13.9, MPV 7.9, Gran % 76.0 H, Lymphocytes % 17.3 L, Monocytes % 4.2, Eosinophils % 2.1, Basophils % 0.4, Absolute Granulocytes 15.7 H, Segmented Neutrophils 67, Band Neutrophils 5, Absolute Lymphocytes 3.6 H, Lymphocytes 19 L, Monocytes 5, Absolute Monocytes 0.9 H, Eosinophils 3, Absolute Eosinophils 0.4, Absolute Basophils 0.1, Metamyelocytes 1, Platelet Estimate VERIFIED BY SMEAR, Normocytic RBCs VERIFIED, Normochromic RBCs VERIFIED Assessment/Plan Assessment: 43-year-old gentleman with past medical history of hepatitis C, IV drug abuse on methadone [IV heroine use], MRSA infection in the past, GERD, anxiety, depression came to the hospital with complaints of pain and swelling right hand. Labs today WBC 21.9--- 25 ---20.2---20.6 with 5 bands neutrophils, hemoglobin 12.3 Assessment and plan 1. Cellulitis right hand and TENOsynovitis of right second to fifth finger - cellulitis of his right hand and the synovitis secondary due to IV drug abuse. Patient was on vancomycin covering MRSA, Unasyn covering gram-positive, negative and anaerobes. Patient blood culture negative. We will discontinue vancomycin and continue Unasyn but increase the dose from 1.5-3 g. At this moment there is no suspicion for pseudomonas infection. We will continue current antibiotics. Patient was seen by a plastic surgeon who suggested to continue the current management. If the patient condition doesn't improve we will involve ID on board. 2. Anxiety/depression-patient has baseline anxiety and depression. He was complaining of increased sweating and anxiety secondary to heroine withdrawal. Patient is to take 10-12 packs of heroine daily. He goes to methadone clinic at [place], though he doesn't take his methadone regularly. Methergine dose was confirmed at this clinic and he was started back on methadone 25 mg. Plan-continue current antibiotics and follow up tomorrow. Code-full code Diet-regular diet Problem List: 1. Tenosynovitis 2. Cellulitis Pain Ratin Pain Location: rt hand Pain Goal: Remain pain free Pain Plan: tylenol Tomorrow's Labs & Rationales: cbc,bep Claudia Rodríguez MD 04/11/18 1120: Attending MD Review Statement Attending Statement Attending MD Statement: examined this patient, discuss w/resident/PA/TRACK LINER OPERATOR, agreed w/resident/PA/TRACK LINER OPERATOR, reviewed EMR data (avail), discussed with nursing, discussed with case mgmt, reviewed images, amended to note Attending Assessment/Plan: Patient seen and examined, very slight improvement. Blood cultures remained negative. Patient is able to bend his fingers shelter through. on exam; aox3, nad. cv; s1,s2, rrr resp; clear abd; soft, nt, bs ext: right hand with swelling and erythema with still limited rom. Laboratory Tests 04/11 0745 Chemistry Sodium (137 - 145 mmol/L) 140 Potassium (3.5 - 5.1 mmol/L) 3.8 Chloride (98 - 107 mmol/L) 103 Carbon Dioxide (22 - 30 mmol/L) 28 Anion Gap (5 - 16) 9 BUN (9 - 20 mg/dL) 11 Creatinine (0.7 - 1.2 mg/dL) 0.7 Estimated GFR (>60 ml/min) > 60 BUN/Creatinine Ratio (7 - 25 %) 15.7 Hematology CBC w Diff MAN DIFF ORDERED WBC (4.8 - 10.8 /CUMM) 20.6 H RBC (4.70 - 6.10 /CUMM) 4.07 L Hgb (14.0 - 18.0 G/DL) 12.3 L Hct (42 - 52 %) 37.6 L MCV (80.0 - 94.0 FL) 92.3 MCH (27.0 - 31.0 PG) 30.2 MCHC (33.0 - 37.0 G/DL) 32.8 L RDW (11.5 - 14.5 %) 13.9 Plt Count (130 - 400 /CUMM) 381 MPV (7.4 - 10.4 FL) 7.9 Gran % (42.2 - 75.2 %) 76.0 H Lymphocytes % (20.5 - 51.1 %) 17.3 L Monocytes % (1.7 - 9.3 %) 4.2 Eosinophils % (0 - 5 %) 2.1 Basophils % (0.0 - 2.0 %) 0.4 Absolute Granulocytes (1.4 - 6.5 /CUMM) 15.7 H Segmented Neutrophils (42.2 - 75.2 %) 67 Band Neutrophils (0.0 - 5.0 %) 5 Absolute Lymphocytes (1.2 - 3.4 /CUMM) 3.6 H Lymphocytes (20.5 - 51.1 %) 19 L Monocytes (1.7 - 9.3 %) 5 Absolute Monocytes (0.10 - 0.60 /CUMM) 0.9 H Eosinophils (0 - 5.0 %) 3 Absolute Eosinophils (0.0 - 0.7 /CUMM) 0.4 Absolute Basophils (0.0 - 0.2 /CUMM) 0.1 Metamyelocytes (0.0 - 1.0 %) 1 Platelet Estimate (ADEQUATE) VERIFIED BY SMEAR Normocytic RBCs VERIFIED Normochromic RBCs VERIFIED A/P; 43 y/o M with pmh sig for IVDU, on methadone since 2012 (follows [facility] in [place]), HEP C, GERD, MRSA, anxiety, depression, admitted with Right hand cellulitis after IV drug use. Pt used IV Heroin. Leukocytosis is still significant. Blood cultures remain negative. We'll stop the vancomycin and continue Unasyn with increased dose. Patient was encouraged to keep moving his fingers and uses hand. He was also encouraged to keep hand elevated. Patient has been followed by plastic surgery and no procedures planned. If no improvement despite high dose of Unasyn then will call infectious disease consult. Pain management adequate. Continue the rest of the medications. Patient on Lovenox for DVT prophylaxis.
[2018-04-11 08:50] LABS: ABSOLUTE BASOPHIL COUNT 0.1 /CUMM (0.0-0.2); ABSOLUTE EOSINOPHIL COUNT 0.4 /CUMM (0.0-0.7); ABSOLUTE GRANULOCYTE CT 15.7 /CUMM (1.4-6.5); ABSOLUTE LYMPH COUNT 3.6 /CUMM (1.2-3.4); ABSOLUTE MONOCYTE COUNT 0.9 /CUMM (0.10-0.60); BASOPHIL % 0.4 % (0.0-2.0); EOSINOPHIL % 2.1 % (0-5); HEMATOCRIT 37.6 % (42-52); MEAN CORPUSCULAR HGB 30.2 PG (27.0-31.0); MEAN CORPUSCULAR HGB CONC 32.8 G/DL (33.0-37.0); MEAN CORPUSCULAR VOLUME 92.3 FL (80.0-94.0); MEAN PLATELET VOLUME 7.9 FL (7.4-10.4); PLATELET COUNT 381 /CUMM (130-400); RBC DISTRIBUTION WIDTH 13.9 % (11.5-14.5); RED BLOOD CELL CT 4.07 /CUMM (4.70-6.10); WHITE BLOOD CELL COUNT 20.6 /CUMM (4.8-10.8)
[2018-04-11 14:19] VITALS: BP 140/80
[2018-04-11 21:52] VITALS: BP 114/66
--- NOTE | 2018-04-12 05:38 | PN- Housestaff ---
Carolyn RASHID,Diane 04/12/18 0538: Subjective Follow-up For: tenosynovitis Cellulitis Complaints: no complaints Subjective: Patient seen and examined at bedside. No overnight events. Patient feels his redness, swelling is much better and able to flex his fingers a little better than yesterday. Review of Systems Constitutional: Reports: no symptoms, see HPI. Objective Last 24 Hrs of Vital Signs/I&O Vital Signs Date Time Temp Pulse Resp B/P B/P Pulse O2 O2 Flow FiO2 Mean Ox Delivery Rate 04/12 0620 98.1 75 18 134/88 95 Room Air 04/11 2152 98.4 50 18 114/66 95 Room Air 04/11 1419 97.8 60 20 140/80 98 Intake & Output 04/12 1600 04/12 0800 04/12 0000 Intake Total 540 390 Output Total Balance 540 390 Intake, IV 300 150 Intake, Oral 240 240 Physical Exam General Appearance: Alert, Oriented X3, Cooperative, No Acute Distress Cardiovascular: Regular Rate, Normal S1, Normal S2, No Murmurs Lungs: Normal Air Movement Abdomen: Soft, No Tenderness, No Hepatospenomegaly Neurological: Strength at 5/5 X4 Ext, Normal Tone, Sensation Intact Extremities: right hand-redness and swellingdecreased Current Medications: Current Medications Sig/Daniel Start time Last Medication Dose Route Stop Time Status Admin Acetaminophen 1,000 MG Q6P PRN 04/09 0130 AC 04/09 N/A 1 UNIT IV 0552 Acetaminophen 325 MG Q6 PRN 04/08 2345 AC PO Ampicillin Sodium/ 3,000 MG Q6 04/11 1200 AC 04/12 Sulbactam Sodium IV 0524 Sodium Chloride 100 ML Ampicillin Sodium/ 1,500 MG Q6 04/09 0600 DC 04/11 Sulbactam Sodium IV 0621 Sodium Chloride 100 ML Enoxaparin Sodium 40 MG DAILY 04/09 0900 AC 04/09 SC 1113 Hydroxyzine HCl 50 MG Q6P PRN 04/09 1345 AC 04/12 PO 0610 Methadone HCl 25 MG DAILY 04/09 1330 AC 04/11 PO 0935 Naproxen 500 MG BID 04/09 0939 AC 04/11 PO 2107 Omeprazole 40 MG DAILY AC 04/09 0700 AC 04/12 PO 0525 Oxycodone HCl 10 MG Q6P PRN 04/09 0938 AC 04/12 PO 0525 Polyethylene Glycol 17 GM DAILY 04/11 1430 AC PO Senna 187 MG AT BEDTIME 04/11 2100 AC PO Trazodone HCl 50 MG QPM 04/09 2100 AC 04/11 PO 2106 Last 24 Hrs of Lab/Aaron Results Last 24 Hrs of Labs/Mics: Laboratory Tests 04/12/18 0758: Sodium Pending, Potassium Pending, Chloride Pending, Carbon Dioxide Pending, Anion Gap Pending, BUN Pending, Creatinine Pending, BUN/Creatinine Ratio Pending , CBC w Diff Pending, WBC Pending, RBC Pending, Hgb Pending, Hct Pending, MCV Pending, MCH Pending, MCHC Pending, RDW Pending, Plt Count Pending, MPV Pending Assessment/Plan Assessment: 43-year-old gentleman with past medical history of hepatitis C, IV drug abuse on methadone [IV heroine use], MRSA infection in the past, GERD, anxiety, depression came to the hospital with complaints of pain and swelling right hand. Vital stable today. Labs today WBC 21.9--- 25 ---20.2---20.6 with 5 bands neutrophils-----16.2, hemoglobin 12.3 Assessment and plan 1. Cellulitis right hand and TENOsynovitis of right second to fifth finger - cellulitis of his right hand and the synovitis secondary due to IV drug abuse. Patient was on vancomycin covering MRSA, Unasyn covering gram-positive, negative and anaerobes. Patient blood culture negative. Vancomycin was discontinued and continue Unasyn. At this moment there is no suspicion for pseudomonas infection. We will continue current antibiotics. Patient was seen by a plastic surgeon who suggested to continue the current management. If the patient condition doesn't improve we will involve ID on board. 2. Anxiety/depression-patient has baseline anxiety and depression. He was complaining of increased sweating and anxiety secondary to heroine withdrawal. Patient is to take 10-12 packs of heroine daily. He goes to methadone clinic at [place], though he doesn't take his methadone regularly. Methadone dose was confirmed at this clinic and he was started back on methadone 25 mg. Plan-continue current antibiotics and follow up tomorrow. Code-full code Diet-regular diet Problem List: 1. Tenosynovitis 2. Cellulitis Pain Ratin Pain Location: None Pain Goal: Remain pain free Pain Plan: Tylenol Tomorrow's Labs & Rationales: cbc,bep Marcos RASHID,Claudia 04/12/18 1416: Attending MD Review Statement Attending Statement Attending MD Statement: examined this patient, discuss w/resident/PA/MELTER HELPER, agreed w/resident/PA/MELTER HELPER, reviewed EMR data (avail), discussed with nursing, discussed with case mgmt, amended to note Attending Assessment/Plan: Patient seen and examined, overall doing better. The right hand is looking better in terms of swelling, erythema and range of motion. Patient remains afebrile and leukocytosis has also improved. Continue current dose of Unasyn. So far cultures remained negative. Continue current pain management of the rest of the medications. Patient was encouraged to ambulate. Patient on Lovenox for DVT prophylaxis.
[2018-04-12 06:20] VITALS: BP 134/88
[2018-04-12 08:56] LABS: ABSOLUTE BASOPHIL COUNT 0.1 /CUMM (0.0-0.2); ABSOLUTE EOSINOPHIL COUNT 0.3 /CUMM (0.0-0.7); ABSOLUTE GRANULOCYTE CT 11.9 /CUMM (1.4-6.5); ABSOLUTE LYMPH COUNT 3.2 /CUMM (1.2-3.4); ABSOLUTE MONOCYTE COUNT 0.9 /CUMM (0.10-0.60); BASOPHIL % 0.4 % (0.0-2.0); EOSINOPHIL % 1.7 % (0-5); GRANULOCYTE % 72.6 % (42.2-75.2); HEMATOCRIT 37.1 % (42-52); MEAN CORPUSCULAR HGB 30.2 PG (27.0-31.0); MEAN CORPUSCULAR VOLUME 91.6 FL (80.0-94.0); MEAN PLATELET VOLUME 7.6 FL (7.4-10.4); PLATELET COUNT 464 /CUMM (130-400); RBC DISTRIBUTION WIDTH 13.9 % (11.5-14.5); RED BLOOD CELL CT 4.05 /CUMM (4.70-6.10); WHITE BLOOD CELL COUNT 16.4 /CUMM (4.8-10.8)
[2018-04-12 14:52] VITALS: BP 130/82
[2018-04-12 22:05] VITALS: BP 106/70
[2018-04-13 06:51] VITALS: BP 134/64
--- NOTE | 2018-04-13 07:32 | PN- Housestaff ---
Carolyn RASHID,[facility] 04/13/18 0732: Subjective Follow-up For: tenosynovitis Cellulitis Subjective: Patient seen and examined at bedside no overnight events. No complaints. He says his swelling and redness is reduced. Review of Systems Constitutional: Reports: no symptoms, see HPI. Objective Last 24 Hrs of Vital Signs/I&O Vital Signs Date Time Temp Pulse Resp B/P B/P Pulse O2 O2 Flow FiO2 Mean Ox Delivery Rate 04/13 0651 97.8 59 20 134/64 93 04/12 2205 98.1 50 18 106/70 95 Room Air 04/12 1452 97.8 65 20 130/82 96 Room Air Intake & Output 04/13 0800 04/13 0000 04/12 1600 Intake Total 360 Output Total Balance 360 Intake, IV 120 Intake, Oral 240 Physical Exam General Appearance: Alert, Oriented X3, Cooperative Cardiovascular: Regular Rate, Normal S1, Normal S2, No Murmurs Lungs: Clear to Auscultation Abdomen: Normal Bowel Sounds, Soft, No Tenderness, No Hepatospenomegaly Neurological: Normal Speech, Strength at 5/5 X4 Ext, Normal Tone, Sensation Intact Last 24 Hrs of Lab/Aaron Results Last 24 Hrs of Labs/Mics: Laboratory Tests 04/12/18 0758: Anion Gap 12, Estimated GFR > 60, BUN/Creatinine Ratio 18.6, CBC w Diff NO MAN DIFF REQ, RBC 4.05 L, MCV 91.6, MCH 30.2, MCHC 33.0, RDW 13.9, MPV 7.6, Gran % 72.6, Lymphocytes % 19.6 L, Monocytes % 5.7, Eosinophils % 1.7, Basophils % 0.4 , Absolute Granulocytes 11.9 H, Absolute Lymphocytes 3.2, Absolute Monocytes 0.9 H, Absolute Eosinophils 0.3, Absolute Basophils 0.1 Assessment/Plan Assessment: 43-year-old gentleman with past medical history of hepatitis C, IV drug abuse on methadone [IV heroine use], MRSA infection in the past, GERD, anxiety, depression came to the hospital with complaints of pain and swelling right hand. Vital stable today. Labs today WBC 21.9--- 25 ---20.2---20.6 with 5 bands neutrophils-----16.2, hemoglobin 12.3 Assessment and plan 1. Cellulitis right hand and TENOsynovitis of right second to fifth finger - cellulitis of his right hand and the synovitis secondary due to IV drug abuse. Patient was on vancomycin covering MRSA, Unasyn covering gram-positive, negative and anaerobes. Patient blood culture negative. Vancomycin was discontinued and continue Unasyn. At this moment there is no suspicion for pseudomonas infection. We will continue current antibiotics. Patient was seen by a plastic surgeon who suggested to continue the current management. If the patient condition doesn't improve we will involve ID on board. 2. Anxiety/depression-patient has baseline anxiety and depression. He was complaining of increased sweating and anxiety secondary to heroine withdrawal. Patient is to take 10-12 packs of heroine daily. He goes to methadone clinic at [place], though he doesn't take his methadone regularly. Methadone dose was confirmed at this clinic and he was started back on methadone 25 mg. Plan-continue current antibiotics and follow up tomorrow. Code-full code Diet-regular diet Problem List: 1. Cellulitis 2. Tenosynovitis Pain Ratin Pain Location: none Pain Goal: Remain pain free Pain Plan: tylenol Tomorrow's Labs & Rationales: jeremias Rodríguez MD,Claudia 04/13/18 1337: Attending MD Review Statement Attending Statement Attending MD Statement: examined this patient, discuss w/resident/PA/OCCUPATIONAL HEALTH NURSE SUPERVISOR, agreed w/resident/PA/OCCUPATIONAL HEALTH NURSE SUPERVISOR, reviewed EMR data (avail), discussed with nursing, discussed with case mgmt, reviewed images, amended to note Attending Assessment/Plan: Patient seen and examined, overall doing much better. The right hand swelling and erythema has been improving. He also has improvement in his leukocytosis. He remains afebrile. Will continue IV and hepatic for another 24 hours and if patient continues to improve the likely can be discharged home tomorrow on oral Augmentin to complete a total of 10-14 day course. Continue the rest of the management.
[2018-04-13 10:25] LABS: ABSOLUTE BASOPHIL COUNT 0.1 /CUMM (0.0-0.2); ABSOLUTE EOSINOPHIL COUNT 0.2 /CUMM (0.0-0.7); ABSOLUTE GRANULOCYTE CT 11.3 /CUMM (1.4-6.5); ABSOLUTE LYMPH COUNT 3.1 /CUMM (1.2-3.4); ABSOLUTE MONOCYTE COUNT 0.8 /CUMM (0.10-0.60); BASOPHIL % 0.4 % (0.0-2.0); EOSINOPHIL % 1.2 % (0-5); GRANULOCYTE % 73.1 % (42.2-75.2); HEMATOCRIT 36.9 % (42-52); MEAN CORPUSCULAR HGB 29.8 PG (27.0-31.0); MEAN CORPUSCULAR HGB CONC 32.7 G/DL (33.0-37.0); MEAN CORPUSCULAR VOLUME 91.1 FL (80.0-94.0); MEAN PLATELET VOLUME 7.6 FL (7.4-10.4); PLATELET COUNT 446 /CUMM (130-400); RBC DISTRIBUTION WIDTH 13.1 % (11.5-14.5); RED BLOOD CELL CT 4.06 /CUMM (4.70-6.10); WHITE BLOOD CELL COUNT 15.4 /CUMM (4.8-10.8)
[2018-04-13 14:48] VITALS: BP 130/70
[2018-04-13 22:54] VITALS: BP 122/74
[2018-04-14 06:18] VITALS: BP 146/78
--- NOTE | 2018-04-14 07:51 | PN- Housestaff ---
Subjective Follow-up For: tenosynovitis Cellulitis Subjective: Patient seen and examined at bedside no overnight events. No complaints. He says his swelling and redness is reduced. Review of Systems Constitutional: Reports: no symptoms, see HPI. Objective Last 24 Hrs of Vital Signs/I&O Vital Signs Date Time Temp Pulse Resp B/P B/P Pulse O2 O2 Flow FiO2 Mean Ox Delivery Rate 04/14 06 97.8 54 18 146/78 94 Room Air 04/13 2254 97.9 52 18 122/74 97 Room Air Intake & Output 04/14 1600 04/14 0800 04/14 0000 Intake Total 240 240 Output Total Balance 240 240 Intake, Oral 240 240 Physical Exam General Appearance: Alert, Oriented X3, Cooperative, No Acute Distress Cardiovascular: Regular Rate, Normal S1, Normal S2, No Murmurs Lungs: Normal Air Movement Extremities: redness and swelling reduced. Current Medications: Current Medications Sig/Daniel Start time Last Medication Dose Route Stop Time Status Admin Acetaminophen 1,000 MG Q6P PRN 04/09 0130 DCD 04/09 N/A 1 UNIT IV 0552 Acetaminophen 325 MG Q6 PRN 04/08 2345 DCD PO Amoxicillin/ 875 MG Q12 04/13 2157 DCD 04/14 Clavulanate Potassium PO 0853 Ampicillin Sodium/ 3,000 MG Q6 04/11 1200 DC 04/13 Sulbactam Sodium IV 1754 Sodium Chloride 100 ML Enoxaparin Sodium 40 MG DAILY 04/09 0900 DCD 04/09 SC 1113 Hydroxyzine HCl 50 MG Q6P PRN 04/09 1345 DCD 04/14 PO 1059 Methadone HCl 25 MG DAILY 04/09 1330 DCD 04/14 PO 0854 Naproxen 500 MG BID 04/09 0939 DCD 04/14 PO 0855 Omeprazole 40 MG DAILY AC 04/09 0700 DCD 04/14 PO 0444 Oxycodone HCl 10 MG Q6P PRN 04/09 0938 DCD 04/14 PO 1059 Polyethylene Glycol 17 GM DAILY 04/11 1430 DCD PO Senna 187 MG AT BEDTIME 04/11 2100 DCD PO Trazodone HCl 50 MG QPM 04/09 2100 DCD 04/13 PO 2120 Last 24 Hrs of Lab/Aaron Results Last 24 Hrs of Labs/Mics: Laboratory Tests 04/14/18 0740: CBC w Diff NO MAN DIFF REQ, RBC 4.48 L, MCV 90.6, MCH 30.7, MCHC 33.9, RDW 13.4 , MPV 7.4, Gran % 70.3, Lymphocytes % 21.9, Monocytes % 5.8, Eosinophils % 1.7, Basophils % 0.3, Absolute Granulocytes 10.5 H, Absolute Lymphocytes 3.3, Absolute Monocytes 0.9 H, Absolute Eosinophils 0.3, Absolute Basophils 0 Assessment/Plan Assessment: 43-year-old gentleman with past medical history of hepatitis C, IV drug abuse on methadone [IV heroine use], MRSA infection in the past, GERD, anxiety, depression came to the hospital with complaints of pain and swelling right hand. Assessment and plan 1. Cellulitis right hand with Tenosynovitis-patient redness, swelling has markedly improved. Patient would like to go home today. We will send him home with tapering dose of steroids and pain medicine. Patient is advised to follow- up with his primary care provider Malia Pulido and plastic surgeon Alton Tovar as outpatient within 1-2 weeks of discharge. Patient also advised to follow-up with pain clinic at [place]. Problem List: 1. Tenosynovitis 2. Cellulitis Pain Ratin Pain Location: none Pain Goal: Remain pain free Pain Plan: tylenol Tomorrow's Labs & Rationales: none
--- NOTE | 2018-04-14 08:07 | Patient Discharge Instructions ---
Discharge Instructions General Discharge Information You were seen/treated for: Cellulitis Teno synovitis Watch for these problems: In case of fever, nausea, vomiting, chills, chest pain, shortness of breath the school to the nearest emergency room Special Instructions: Please follow-up with your primary care provider/pain clinic at [place]/ plastic surgeon within 1-2 weeks of discharge Diet Continue normal diet: Yes Recommended Diet: Regular Activity Full Activity/No Limits: No Activity Self Limited: Yes Acute Coronary Syndrome Inclusion Criteria At DC or during hospital stay patient has or had the following: ACS DIAGNOSIS No Discharge Core Measures Meds if any: Prescribed or Continued at Discharge Meds if any: NOT Prescribed or Continued at Discharge Congestive Heart Failure Inclusion Criteria At DC or during hospital stay patient has or had the following: CHF DIAGNOSIS No Discharge Core Measures Meds if any: Prescribed or Continued at Discharge Meds if any: NOT Prescribed or Continued at Discharge Cerebrovascular accident Inclusion Criteria At DC or during hospital stay patient has or had the following: CVA/TIA Diagnosis No Discharge Core Measures Meds if any: Prescribed or Continued at Discharge Meds if any: NOT Prescribed or Continued at Discharge Venous thromboembolism Inclusion Criteria VTE Diagnosis No VTE Type NONE VTE Confirmed by (Test) NONE Discharge Core Measures - Per Current guidelines, there needs to be overlap - treatment for the first 5 days of Warfarin therapy. - If discharged on Warfarin prior to 5 days of - overlap therapy, the patient will need to be - assessed for post discharge needs including - *Post discharge parental anticoagulation - *Warfarin and/or parental anticoagulation education - *Follow up date to check INR post discharge At least 5 days overlap therapy as Inpatient No Meds if any: Prescribed or Continued at Discharge Note: Overlap Therapy is Warfarin and Anticoagulant Meds if any: NOT Prescribed or Continued at Discharge
[2018-04-14] MEDS ORDERED: AMOX-CLAV 875-1 EACH PO ×3 (08:11→11:49)
[2018-04-14] MEDS ORDERED: OXYCODONE HCL10 M2 PO ×2 (08:11→11:49)
[2018-04-14 08:16] LABS: ABSOLUTE BASOPHIL COUNT 0 /CUMM (0.0-0.2); ABSOLUTE EOSINOPHIL COUNT 0.3 /CUMM (0.0-0.7); ABSOLUTE GRANULOCYTE CT 10.5 /CUMM (1.4-6.5); ABSOLUTE LYMPH COUNT 3.3 /CUMM (1.2-3.4); ABSOLUTE MONOCYTE COUNT 0.9 /CUMM (0.10-0.60); BASOPHIL % 0.3 % (0.0-2.0); EOSINOPHIL % 1.7 % (0-5); GRANULOCYTE % 70.3 % (42.2-75.2); HEMATOCRIT 40.6 % (42-52); MEAN CORPUSCULAR HGB 30.7 PG (27.0-31.0); MEAN CORPUSCULAR HGB CONC 33.9 G/DL (33.0-37.0); MEAN CORPUSCULAR VOLUME 90.6 FL (80.0-94.0); MEAN PLATELET VOLUME 7.4 FL (7.4-10.4); PLATELET COUNT 445 /CUMM (130-400); RBC DISTRIBUTION WIDTH 13.4 % (11.5-14.5); RED BLOOD CELL CT 4.48 /CUMM (4.70-6.10); WHITE BLOOD CELL COUNT 14.9 /CUMM (4.8-10.8)
[2018-04-14] MEDS ORDERED: MOTRIN IB200 M1 PO (10:07)
[2018-04-14] MEDS ORDERED: IBUPROFEN800 M1 PO ×2 (11:43→11:49)
--- NOTE | 2018-04-14 12:43 | PN- Att Addend ---
Attending Addendum Attending Brief Note Patient seen and examined, his right hand is looking much better. There is definitely improved swelling, erythema and range of motion. Patient's white blood count count has improved. He continues to remain afebrile. He is medically stable for discharge home today on oral antibiotics. He is asking for a few days supply for oxycodone which we will give. He should follow-up with his primary care doctor. He does not have a primary care doctor so will refer him to one of her [facility] doctors. He should also follow-up with methadone clinic.
--- NOTE | 2018-04-14 14:37 | Discharge Summary ---
Visit Information Visit Dates Admission Date: 04/08/18 Discharge Date: 04/14/18 Hospital Course Course Attending Physician: Marcos RASHID,Claudia Primary Care Physician: Patient Has No Primary Care Dr Hospital Course: Patient is 43-year-old male with PMH of IVDU, on methadone since 2012 (follows [facility] in [place]), HEP C, MRSA, GERD, anxiety, depression presented to the ED with chief complaint of swelling and redness right hand and fingers. Patient restarted to use IV heroin since 3 weeks ago after stopping for the last 3 years. He was injecting on the dorsum of the hands, and for the last couple of days on the right hand. He noticed erythema on the right hand for the last 3 days, with extreme worsening on the day of admission to ED. He also had severe swelling and erythema. He reported decreased motion due to severe pain. Patient also reported URTI symptoms last week with initially fever and chills, cough and sputom, but denied any fever or chills now. No chest pain, sob, weakness, fatique. He denied drinking alcohol for the last 3 years, smokes 0.5PPD since age 14. Family history significant for heart attack in brother and breast cancer in sister. Hospital course: 1. Cellulitis right hand and Tenosynovitis of right second to fifth finger - cellulitis of his right hand and tenosynovitis secondary due to IV drug abuse. Patient was initially on vancomycin, Unasyn. His blood cultures were negative. There was no suspicion for MRSA and hence Vanco was discontinued. Patient was on Unasyn and discharged home with by mouth Augmentin. Patient was also seen by plastic surgeon who suggested to continue the current management. On the day of discharge his redness swelling markedly reduced and patient was able to make a fist. Sensations were intact. 2.Anxiety and depression- He was complaining of increased sweating and anxiety secondary to heroine withdrawal. Patient used to take 10-12 packs of heroine daily. He goes to methadone clinic at [place], though he doesn't take his methadone regularly. Methadone dose was confirmed at this clinic and he was started back on methadone 25 mg. patient had no further withdrawal symptoms. Patient sent home with follow-up with his primary care physician and plastic surgeon within 1-2 weeks of discharge. Patient also advised to attend the [place] [facility] to get his methadone dose. - Hand x-ray May 8 Prominent dorsal soft tissue swelling. No definite acute fracture. CAT scan upper extremity April 8 Tenosynovitis of the extensor tendons extending to the second through fifth fingers. Edema in the dorsal subcutaneous soft tissues of the wrist and hand with perhaps some minimal enhancement consistent with cellulitis. No focal fluid collection or abscess. Allergies: Coded Allergies: NO KNOWN ALLERGIES (02/13/13) Disposition Summary Disposition Principal Diagnosis: Cellulitis Tenosynovitis Additional Diagnosis: none Discharge Disposition: home or self care Discharge Instructions General Discharge Information Code Status: Full Code Patient's Diet: Regular diet Patient's Activity: As tolerated Follow-Up Instructions/Appts: Please follow-up with your primary care provider and plastic surgeon within 1-2 weeks of discharge. Please follow-up with your [place] clinic for methadone. Medications at Discharge Discharge Medications: Continue taking these medications: Methadone Hydrochloride (Methadone HCl) 10 MG TABLET 25 Milligram ORAL DAILY Days = 30 Comments: Last Taken: 04/14/18 Time: 0900 AM Esomeprazole (Nexium) 40 MG CAPSULE.DR 1 Capsule ORAL DAILY Comments: Last Taken: 04/14/18 Time: 0500 Trazodone HCl (Trazodone HCl) 50 MG TABLET 1 Tablet ORAL Every night Comments: Last Taken: 04/13/18 Time: 2100 Start taking the following new medications: Ibuprofen (Ibuprofen) 800 MG TABLET 1 Tablet ORAL THREE TIMES DAILY Qty = 12 No Refills Instructions: . Comments: Last Taken: 04/14/18 Time: 0900 AM Oxycodone HCl (Oxycodone HCl) 10 MG TABLET 10 Milligram ORAL EVERY SIX HOURS NEEDED as needed for PAIN SCALE 4-6 ( MODERATE) Qty = 8 No Refills Instructions: . Comments: Last Taken: 04/14/18 Time: 0900 AM Amoxicillin/Clavulanate Potass (Amox-Clav 875-125 MG Tablet) 875 MG-125 MG TABLET 875 Milligram ORAL EVERY 12 HOURS Qty = 8 No Refills Instructions: . Comments: Last Taken: 04/14/18 Time: 0900 AM Copies To: Tess RASHID,Malia Lenz
== END 2018-04-14 13:37 | DRG 383 ==
LOC: ERH 17:58 → 2NA 22:42 → ERHI 22:42 → ENRESERV 04-09 00:26 → CANRESERV 04-09 00:26 → ENRESERV 04-09 06:57 → ENTRNSPT 04-09 07:18 → 2NA 04-09 07:45 → EDTRNSPTSTS 04-09 07:50 → EDTRNSPT 04-09 07:50 → 2NA 04-09 07:52 → CMPTRNSPT 04-09 08:01 → ENPENDDIS 04-14 13:26 → 2NA 04-14 13:37
PROVIDERS: Physician Assistant Medical; Student in an Organized Health Care Education/Training Program
DX: L03.113 Cellulitis of right upper limb (principal); M65.141 Other infective (teno)synovitis, right hand; Z86.19 Personal history of other infectious and parasitic diseases; K21.9 Gastro-esophageal reflux disease without esophagitis; Z86.14 Personal history of Methicillin resistant Staphylococcus aureus infection; Z91.14 Patient's other noncompliance with medication regimen; F41.9 Anxiety disorder, unspecified; F41.8 Other specified anxiety disorders; F32.9 Major depressive disorder, single episode, unspecified; B18.2 Chronic viral hepatitis C; F17.210 Nicotine dependence, cigarettes, uncomplicated; F11.23 Opioid dependence with withdrawal; D72.829 Elevated white blood cell count, unspecified
CPT/HCPCS: 2NAP; ERO; 36415; 36592; 73130-RT; 80307; 81001; 82436; 87040; 93005; 93010; 96374; 96375; J0131; J1650; J1885; J3370; J7040